=== PATIENT | female | born 1930 | race Caucasian/White ===

== ENCOUNTER 2020-02-19 18:47 | Emergency (ER) | payer MEDICARE ==
[~2020-02-19] VITALS: Ht 157.4 cm; Wt 62.1 kg
[~2020-02-19 18:47] MED LIST: DILTIA XT180 MG PO; FIBERCON625 MG PO; JANUMET 500 MG-1 TA1 PO; LIPITOR10 MG PO; LOSARTAN POTASS1 TA2 PO; TOPROL XL25 MG PO; WARFARIN SODIUM5 MG PO
[2020-02-19 19:51] LABS: BASO % 0.1 % (0.0-1.0); EOS # 0.1 10*3/uL (0.0-0.4); EOS % 0.4 % (1.0-4.0); HEMATOCRIT 46.6 % (37.0-47.0); LYMPH # 1.5 10*3/uL (1.3-4.4); LYMPH % 10.8 % (27.0-41.0); MEAN CELL VOLUME 93.2 fl (81.0-99.0); MEAN CORPUSCULAR HGB 29.8 pg (27.0-31.0); MEAN PLATELET VOLUME 10.6 fl (9.6-12.3); MONO # 1.1 10*3/uL (0.1-1.0); MONO % 7.4 % (3.0-9.0); NEUT # 11.5 10*3/uL (2.3-7.9); PLATELET COUNT AUTOMATED 229 10*3/uL (130-400); RED CELL DISTRI WIDTH 15.7 % (0-14.5); WHITE BLOOD COUNT 14.2 10*3/uL (4.8-10.8)
[2020-02-19 20:01] LABS: ACT PARTIAL THROMBO TIME 22.1 SECONDS (20.0-32.1)
[2020-02-19 20:22] LABS: ALBUMIN 3.4 gm/dl (3.1-4.5); ALKALINE PHOSPHATASE 69 U/L (45-117); BUN 14 mg/dl (7-24); CHLORIDE 104 mmol/L (98-107); CREATININE 0.83 mg/dL (0.55-1.02); POTASSIUM 3.8 mmol/L (3.5-5.1); SGOT/AST 22 IU/L (3-35); SGPT/ALT 14 U/L (12-78); SODIUM 138 mmol/L (136-145); TOTAL PROTEIN 7.9 gm/dL (6.4-8.2)
== END 2020-02-19 21:15 | disposition other institution (70) ==
LOC: ED 18:47
PROVIDERS: Nurse Practitioner Family
DX: B34.9 Viral infection, unspecified (principal); Z79.899 Other long term (current) drug therapy; Z79.01 Long term (current) use of anticoagulants

== ENCOUNTER 2021-04-24 00:01 | Emergency (ER) | payer MEDICARE ==
[~2021-04-24] VITALS: Ht 160 cm; Wt 62.1 kg
== END 2021-04-24 01:57 | disposition home or self-care (01) ==
LOC: ED 00:01
DX: R04.0 Epistaxis (principal); Z79.899 Other long term (current) drug therapy; Z98.890 Other specified postprocedural states

== ENCOUNTER 2021-07-21 21:51 | Inpatient (IN) | payer MEDICARE ==
[~2021-07-21] VITALS: Ht 160 cm; Wt 55.3 kg
[2021-07-21 22:05] VITALS: BP 171/63
[2021-07-21 22:14] LABS: BASO # 0.1 10*3/uL (0.0-0.1); BASO % 0.9 % (0.0-1.0); EOS # 0.2 10*3/uL (0.0-0.4); EOS % 2.2 % (1.0-4.0); HEMATOCRIT 41.7 % (37.0-47.0); LYMPH # 0.9 10*3/uL (1.3-4.4); LYMPH % 10.7 % (27.0-41.0); MEAN CELL VOLUME 91.4 fl (81.0-99.0); MEAN CORPUSCULAR HGB 28.9 pg (27.0-31.0); MEAN CORPUSCULAR HGB CONC 31.7 g/dl (33.0-37.0); MEAN PLATELET VOLUME 10.4 fl (9.6-12.3); MONO # 0.7 10*3/uL (0.1-1.0); MONO % 7.9 % (3.0-9.0); NEUT # 6.4 10*3/uL (2.3-7.9); NEUT % 78.1 % (47.0-73.0); PLATELET COUNT AUTOMATED 293 10*3/uL (130-400); RED BLOOD COUNT 4.56 10*6/uL (4.10-5.10); RED CELL DISTRI WIDTH 14.1 % (0-14.5); WHITE BLOOD COUNT 8.2 10*3/uL (4.8-10.8)
[2021-07-21 22:25] LABS: ACT PARTIAL THROMBO TIME 34.4 SECONDS (20.0-32.1); INTERNATIONAL NORM RATIO 1.1 (2.0-3.5)
[2021-07-21 22:30] LABS: ALKALINE PHOSPHATASE 62 U/L (45-117); BUN 16 mg/dl (7-24); CHLORIDE 95 mmol/L (98-107); CREATININE 0.58 mg/dL (0.55-1.02); POTASSIUM 4.5 mmol/L (3.5-5.1); SGOT/AST 18 IU/L (3-35); SGPT/ALT 17 U/L (12-78); SODIUM 136 mmol/L (136-145); TOTAL PROTEIN 7.1 gm/dL (6.4-8.2)
[2021-07-21 22:34] VITALS: BP 179/65
[2021-07-21] MEDS ORDERED: ASPIRIN ADULT L81 M1 PO (22:53)
[2021-07-21] MEDS ORDERED: COLACE100 MG PO (22:54)
[2021-07-21] MEDS ORDERED: ELIQUIS2.5 M1 PO (22:55)
[2021-07-21] MEDS ORDERED: HUMALOG100 UNIT/2 SC (22:56)
[2021-07-21] MEDS ORDERED: LASIX20 MG PO (22:57)
[2021-07-21] MEDS ORDERED: LEVEMIR100 UNIT/1 SQ (22:58)
[2021-07-21] MEDS ORDERED: LEVEMIR100 UNIT/1 SC (22:59)
[2021-07-21] MEDS ORDERED: MAGNESIUM OXID400 MG PO (23:00)
[2021-07-21] MEDS ORDERED: OXYBUTYNIN5 MG PO (23:02)
[2021-07-21] MEDS ORDERED: POTASSIUM CHLO10 ME4 PO (23:04)
[2021-07-21] MEDS ORDERED: VITAMIN D350 MCG PO (23:05)
[2021-07-21] MEDS ORDERED: TRAD5TAB1 PO (23:05)
[2021-07-21] MEDS ORDERED: TRAMADOL HCL50 MG PO (23:07)
[2021-07-21 23:13] VITALS: BP 170/69
[2021-07-22 01:41] VITALS: BP 174/66
[2021-07-22 02:25] VITALS: BP 166/65
[2021-07-22 05:29] LABS: BUN 16 mg/dl (7-24); CHLORIDE 93 mmol/L (98-107); CHOLESTEROL 113 mg/dL (<200); LDL CHOLESTEROL 49 mg/dL (9-159); POTASSIUM 4.1 mmol/L (3.5-5.1); SODIUM 137 mmol/L (136-145); TRIGLYCERIDES 66 mg/dl (<150)
[2021-07-22 05:31] LABS: FREE T4 1.11 ng/dl (0.76-1.46)
[2021-07-22 05:45] LABS: THYROID STIM HORMONE (HS) 0.254 uIU/ml (0.358-4.75)
[2021-07-22 06:08] LABS: BASO # 0.1 10*3/uL (0.0-0.1); BASO % 1.2 % (0.0-1.0); EOS # 0.2 10*3/uL (0.0-0.4); EOS % 2.8 % (1.0-4.0); HEMATOCRIT 42.2 % (37.0-47.0); LYMPH # 0.9 10*3/uL (1.3-4.4); LYMPH % 11.1 % (27.0-41.0); MEAN CELL VOLUME 93.2 fl (81.0-99.0); MEAN CORPUSCULAR HGB 29.6 pg (27.0-31.0); MEAN CORPUSCULAR HGB CONC 31.8 g/dl (33.0-37.0); MEAN PLATELET VOLUME 10.8 fl (9.6-12.3); MONO # 0.7 10*3/uL (0.1-1.0); MONO % 9.5 % (3.0-9.0); NEUT # 5.8 10*3/uL (2.3-7.9); PLATELET COUNT AUTOMATED 284 10*3/uL (130-400); RED BLOOD COUNT 4.53 10*6/uL (4.10-5.10); WHITE BLOOD COUNT 7.7 10*3/uL (4.8-10.8)
[2021-07-22 06:17] LABS: ABG BASE EXCESS 13.5 mmol/L (-2.0-2.0); ARTERIAL BLOOD GAS PH 7.36 (7.35-7.45); ARTERIAL BLOOD GAS PO2 160.6 (80-90)
[2021-07-22 08:00] VITALS: BP 160/60
[2021-07-22 12:00] VITALS: BP 175/60
[2021-07-22 16:00] VITALS: BP 157/54
[2021-07-22 20:00] VITALS: BP 153/78
[2021-07-23] VITALS: BP 116/71
[2021-07-23 06:02] LABS: BUN 15 mg/dl (7-24); CHLORIDE 92 mmol/L (98-107); CREATININE 0.53 mg/dL (0.55-1.02); SODIUM 136 mmol/L (136-145)
[2021-07-23 06:08] LABS: POTASSIUM 4.6 mmol/L (3.5-5.1)
[2021-07-23 08:00] VITALS: BP 165/64
[2021-07-23 12:00] VITALS: BP 161/73
[2021-07-23 16:00] VITALS: BP 162/86
[2021-07-23 20:00] VITALS: BP 179/59
[2021-07-24] VITALS: BP 161/70
[2021-07-24 08:00] VITALS: BP 170/60
[2021-07-24 12:00] VITALS: BP 157/68
[2021-07-24 16:00] VITALS: BP 152/45
[2021-07-24 20:00] VITALS: BP 154/62
[2021-07-25] VITALS: BP 162/84
[2021-07-25 05:27] LABS: CHLORIDE 86 mmol/L (98-107); CREATININE 0.74 mg/dL (0.55-1.02); POTASSIUM 3.7 mmol/L (3.5-5.1); SODIUM 132 mmol/L (136-145)
[2021-07-25 05:32] LABS: BUN 27 mg/dl (7-24)
[2021-07-25 08:00] VITALS: BP 154/58
[2021-07-25 12:00] VITALS: BP 154/56
[2021-07-25 16:00] VITALS: BP 156/51
[2021-07-25 20:22] VITALS: BP 132/79
[2021-07-26] VITALS: BP 125/40
[2021-07-26 05:55] LABS: CHLORIDE 86 mmol/L (98-107); CREATININE 0.81 mg/dL (0.55-1.02); POTASSIUM 3.9 mmol/L (3.5-5.1); SODIUM 133 mmol/L (136-145)
[2021-07-26 06:20] LABS: BUN 42 mg/dl (7-24)
[2021-07-26 06:33] LABS: BASO # 0.1 10*3/uL (0.0-0.1); BASO % 0.6 % (0.0-1.0); EOS # 0.2 10*3/uL (0.0-0.4); EOS % 1.7 % (1.0-4.0); HEMATOCRIT 42.5 % (37.0-47.0); LYMPH # 1.2 10*3/uL (1.3-4.4); LYMPH % 11.7 % (27.0-41.0); MEAN CELL VOLUME 89.3 fl (81.0-99.0); MEAN CORPUSCULAR HGB 28.8 pg (27.0-31.0); MEAN CORPUSCULAR HGB CONC 32.2 g/dl (33.0-37.0); MEAN PLATELET VOLUME 11.4 fl (9.6-12.3); MONO % 9.7 % (3.0-9.0); NEUT % 75.9 % (47.0-73.0); PLATELET COUNT AUTOMATED 264 10*3/uL (130-400); RED BLOOD COUNT 4.76 10*6/uL (4.10-5.10); RED CELL DISTRI WIDTH 14.1 % (0-14.5); WHITE BLOOD COUNT 10.6 10*3/uL (4.8-10.8)
[2021-07-26 08:00] VITALS: BP 141/51
[2021-07-26] MEDS ORDERED: HYDROCODONE-AC1 EAC1 PO (11:28)
[2021-07-26] MEDS ORDERED: TRAMADOL HCL50 MG PO (11:28)
[2021-07-26] MEDS ORDERED: FUROSEMIDE40 MG PO (11:28)
[2021-07-26 12:00] VITALS: BP 152/60
== END 2021-07-26 14:00 | DRG 291 ==
LOC: ED 21:51 → EDHOLD 07-22 01:22 → 4E 07-22 01:22
PROVIDERS: Emergency Medicine; Internal Medicine; Student in an Organized Health Care Education/Training Program; ADMIT Family Medicine; ATTEND Family Medicine
PROC: 4B02XSZ Measurement of Cardiac Pacemaker, External Approach (ICD-10-PCS; principal; 2021-07-22)
DX: I11.0 Hypertensive heart disease with heart failure (principal); I50.33 Acute on chronic diastolic (congestive) heart failure; J96.01 Acute respiratory failure with hypoxia; E43 Unspecified severe protein-calorie malnutrition; I48.21 Permanent atrial fibrillation; Z66 Do not resuscitate; E11.65 Type 2 diabetes mellitus with hyperglycemia; E78.5 Hyperlipidemia, unspecified; Z51.5 Encounter for palliative care; Z79.899 Other long term (current) drug therapy; Z79.4 Long term (current) use of insulin; Z79.82 Long term (current) use of aspirin; Z82.49 Family history of ischemic heart disease and other diseases of the circulatory system; Z68.23 Body mass index [BMI] 23.0-23.9, adult

== ENCOUNTER → 2021-09-13 | Outpatient (CLI) | payer MEDICARE ==
[~2021-09-13] MED LIST changes: +ASPIRIN ADULT L81 M1 PO; +COLACE100 MG PO; +ELIQUIS2.5 M1 PO; +FUROSEMIDE40 MG PO; +HUMALOG100 UNIT/2 SC; +HYDROCODONE-AC1 EAC1 PO; +LASIX20 MG PO; +LEVEMIR100 UNIT/1 SC; +LEVEMIR100 UNIT/1 SQ; +MAGNESIUM OXID400 MG PO; +OXYBUTYNIN5 MG PO; +POTASSIUM CHLO10 ME4 PO; +TRAD5TAB1 PO; +TRAMADOL HCL50 MG PO; +VITAMIN D350 MCG PO
== END | disposition home or self-care (01) ==
LOC: RAD/SH 13:00
PROVIDERS: ATTEND Internal Medicine
DX: R09.89 Other specified symptoms and signs involving the circulatory and respiratory systems (principal); R13.10 Dysphagia, unspecified